=== PATIENT | female | born 1970 | race Caucasian/White ===

== ENCOUNTER 2019-08-02 15:29 | Emergency (ER) | payer OTHER, SELFPAY ==
--- NOTE | 2019-08-02 15:35 | ED.URI ---
HPI - URI/Sore Throat General Chief Complaint: Upper Respiratory Infection Stated Complaint: COUGH/CONGESTION Time Seen by Provider: 08/02/19 15:42 Source: patient and RN notes reviewed Mode of arrival: ambulatory Limitations: no limitations History of Present Illness MD elicited complaint: cough Related Data Home Medications Medication Instructions Recorded Confirmed Lacto.acidophilus-Bif.animalis 1 cap PO DAILY 04/30/19 04/30/19 [Daily Probiotic] bupropion HCl 300 mg PO DAILY 04/30/19 04/30/19 buspirone See Rx Instructions .ROUTE .COMPLEX 04/30/19 04/30/19 cetirizine [Zyrtec] 10 mg PO DAILY 04/30/19 04/30/19 ibuprofen 200 mg PO Q6H PRN 04/30/19 04/30/19 spironolactone 100 mg PO DAILY 04/30/19 04/30/19 tolterodine 4 mg PO DAILY 04/30/19 04/30/19 Allergies Allergy/AdvReac Type Severity Reaction Status Date / Time No Known Allergies Allergy Verified 07/24/19 09:35 Review of Systems Review of Systems: Narrative: CONSTITUTIONAL: Denies malaise, chills, sweats, or fever. EYES: Denies visual changes, redness, or discharge. ENT: Denies rhinorrhea, congestion, sinus pain, otalgia and sore throat. CARDIOVASCULAR: Denies chest pain, palpitations, or edema. RESPIRATORY: Reports cough, chest congestion. Denies dyspnea. GASTROINTESTINAL: Denies abdominal pain, nausea, vomiting, diarrhea SKIN: Denies rash or itching. MUSCULOSKELETAL: Denies myalgia. NEUROLOGIC: Denies headache. All systems reviewed & are unremarkable except as noted in HPI and below PMFSH Family History Family History (System 07/24/19 @ 09:35 by Shima Varela) Mother Family history of hypercholesterolemia Father Family history of cardiac disorder Social History Social History (System 07/24/19 @ 09:35 by Shima Varela) Smoking status: Never smoker Alcohol intake: never Comments At time of signature, agree with nursing past medical, surgical, social and family history. There is no relevant family history pertinent to the presenting complaint Exam Narrative: Exam Narrative: GENERAL: Well-appearing, well-nourished, and in no acute distress. HEAD: Normocephalic EYES: PERRLA, conjunctivae clear ENT: Nares clear, turbinates erythematous, clear discharge. Mucous membranes moist. TM pearly sheppard with dull light reflex bilaterally; no tragal tenderness. Oropharynx not erythematous without lesions. Tonsils not enlarged and without exudate, no drooling, no hoarseness, no trismus. NECK: Supple. No lymphadenopathy CHEST: Clear to auscultation, breath sounds equal. No wheezing, rhonchi, rales, or stridor. No respiratory distress, speaks in full sentences. Cough noted HEART: Regular rate and rhythm. No murmur heard. Normal peripheral pulses. SKIN: Warm, dry, no rash. NEURO: Alert and oriented x3. PSYCH: Normal mood and affect Course Course Emergency Course: Patient is aware of diagnosis, understands and agrees to treatment plan. Anticipatory guidance given. Patient agrees to follow-up as directed and is aware of reasons to seek care at the emergency department. Portions of this record may have been created with voice recognition software Vital Signs Vital signs: Vital Signs Temperature 98.9 F 08/02/19 15:36 Pulse Rate 91 08/02/19 15:36 Respiratory Rate 16 08/02/19 15:36 Blood Pressure 116/66 08/02/19 15:36 Pulse Oximetry 100 08/02/19 15:36 Temperature 98.9 F 08/02/19 15:36 Pulse Rate 91 08/02/19 15:36 Respiratory Rate 16 08/02/19 15:36 Blood Pressure 116/66 08/02/19 15:36 Pulse Oximetry 100 08/02/19 15:36 Reviewed. MDM - URI/Sore Throat MDM Narrative Medical decision making narrative: Differential diagnosis considered: Strep pharyngitis, allergic rhinitis, upper respiratory tract infection, sinusitis, rhinosinusitis, nasopharyngitis. viral pharyngitis, otitis media, otitis externa, pneumonia, bronchitis, viral cough syndrome, viral syndrome, and influenza. Exam findings show no acute concerns or
[2019-08-02 15:36] VITALS: BP 116/66; PULSE 91; RESP 16; TEMP 37.2; O2SAT 100
== END 2019-08-02 15:59 | disposition home or self-care (01) ==
PROVIDERS: Emergency Provider Nurse Practitioner; PCP Family Medicine
DX: J40 Bronchitis, not specified as acute or chronic (principal); F41.9 Anxiety disorder, unspecified; F32.9 Major depressive disorder, single episode, unspecified
CPT/HCPCS: 99213; G0463

== ENCOUNTER 2021-03-28 10:11 | Emergency (ER) | payer OTHER, SELFPAY ==
--- NOTE | 2021-03-28 10:20 | ED.URI ---
HPI - URI/Sore Throat General Chief Complaint: Upper Respiratory Infection Stated Complaint: Sore Throat,Headache Time Seen by Provider: 03/28/21 10:23 Source: patient Mode of arrival: ambulatory Limitations: no limitations History of Present Illness HPI Narrative: 50 year old female who presents to the [facility] care with complaints of sore throat, cough, nasal congestion with drainage, headache since Wednesday. Patient has taken Mucinex and Zyrtec D for her symptoms but is not feeling any better. Patient denies any known fevers but has has some chills and sweats.Patient reports that cough is dry but at times is productive,is keeping her awake at night. Patient has had COVID and also has had COVID immunizations, she works in the school as speech pathologist. MD elicited complaint: sore throat Pertinent past history: sinusitis and other (bronchitis) Onset (ago): day(s) (5) Related Data Home Medications Medication Instructions Recorded Confirmed Lacto.acidophilus-Bif.animalis 1 cap PO DAILY 04/30/19 08/11/19 [Daily Probiotic] bupropion HCl 300 mg PO DAILY 04/30/19 08/11/19 buspirone See Rx Instructions .ROUTE .COMPLEX 04/30/19 08/11/19 cetirizine [Zyrtec] 10 mg PO DAILY 04/30/19 08/11/19 ibuprofen 200 mg PO Q6H PRN 04/30/19 08/11/19 spironolactone 100 mg PO DAILY 04/30/19 08/11/19 Allergies Allergy/AdvReac Type Severity Reaction Status Date / Time No Known Allergies Allergy Verified 07/24/19 09:35 Review of Systems Review of Systems: CONSTITUTIONAL: no known fever,positive for chills, or sweats. EYES: Denies visual changes, redness, or discharge. ENT: Positive for rhinorrhea, congestion, sore throat, no otalgia. CARDIOVASCULAR: Denies chest pain, palpitations, or edema. RESPIRATORY: Positive for cough denies dyspnea. GASTROINTESTINAL: Denies abdominal pain, nausea, vomiting, or diarrhea. GENITOURINARY: Denies dysuria or hematuria. SKIN: Denies rash or itching. MUSCULOSKELETAL: Denies back pain, joint pain, or myalgia. NEUROLOGIC: Positive for headache, numbness, or weakness. PSYCHIATRIC: Positive for history of anxiety or depression. All systems reviewed & are unremarkable except as noted in HPI and below PMFSH Past Medical History Medical History (Updated 03/28/21 @ 10:40 by Ruby Walker NP) Coated tongue COVID-19 Exposure to COVID-19 virus Overactive bladder Stomatitis Viral bronchitis Surgical History Surgical History (Updated 03/28/21 @ 18:57 by Ruby Walker NP) H/O spinal fusion Family History Family History Mother Family history of hypercholesterolemia Father Family history of cardiac disorder Social History Social History (Updated 03/28/21 @ 18:57 by Ruby Walker NP) Smoking status: Never smoker Alcohol intake: never Substance use: never Living arrangements: with family Gender identity (if verbalized by the patient): Female Comments At time of signature, agree with nursing past medical, surgical, social and family history. There is no relevant family history pertinent to the presenting complaint Exam Narrative: GENERAL: Well-appearing, well-nourished, and in no acute distress. HEAD: Normocephalic, atraumatic. EYES: PERRLA and EOMI. ENT: Nares red, clear rhinorrhea no epistaxis. Mucous membranes moist.TM's normal with dull light reflex, throat red with no lesions or exudates,some enlargement of tonsils, post nasal drainage NECK: Supple.no lymphadenopathy CHEST: Clear to auscultation. No respiratory distress.SAO2 100% on room air HEART: Regular rate and rhythm. No murmur heard. Normal peripheral pulses. ABDOMEN: Soft, nontender, nondistended, normal active bowel sounds. EXTREMITIES: Normal range of motion. No edema. SKIN: Warm, dry, no rash. NEURO: No focal deficits. Alert and oriented x3. Course Vital Signs Vital signs: Vital Signs Temperature 37.1 C 03/28/21 10:22 Pulse Rate 93 03/28/21 10:22 R
[2021-03-28 10:22] VITALS: BP 128/66; PULSE 93; RESP 16; TEMP 37.1; O2SAT 100
== END 2021-03-28 10:43 | disposition home or self-care (01) ==
PROVIDERS: Emergency Provider Registered Nurse; PCP Family Medicine
DX: J32.9 Chronic sinusitis, unspecified (principal); R05.9 Cough, unspecified; Z86.16 Personal history of COVID-19
CPT/HCPCS: 99213; G0463

== ENCOUNTER 2021-08-14 16:06 | Emergency (ER) | payer OTHER, SELFPAY ==
[2021-08-14 16:12] VITALS: BP 129/72; PULSE 90; RESP 12; TEMP 37.1; O2SAT 100
--- NOTE | 2021-08-14 16:17 | ED.SKABFB ---
HPI - Skin/Abscess/Foreign Bdy General Chief complaint: Skin/Abscess/Foreign Body Stated complaint: swollen area Time Seen by Provider: 08/14/21 16:17 Source: patient and RN notes reviewed Mode of arrival: ambulatory Limitations: no limitations History of Present Illness HPI narrative: 51 year old female presents with concern for painful bumps in her right groin area. She reports she had what she though was a fatty tumor for some time, and over the past five days has become irritated, larger, and more painful. She reports a small amount of drainage. She denies fever, body aches, chills, sweats, or other painful tender bumps. She denies SOB, swollen lips, or swollen tongue. She denies concern for STD, vaginal itching, or abnormal vaginal discharge. MD complaint: abscess/boil Related Data Home Medications Medication Instructions Recorded Confirmed Lacto.acidophilus-Bif.animalis 1 cap PO DAILY 04/30/19 08/14/21 [Daily Probiotic] bupropion HCl 300 mg PO DAILY 04/30/19 08/14/21 buspirone See Rx Instructions .ROUTE .COMPLEX 04/30/19 08/14/21 cetirizine [Zyrtec] 10 mg PO DAILY 04/30/19 08/14/21 ibuprofen 200 mg PO Q6H PRN 04/30/19 08/14/21 spironolactone 100 mg PO DAILY 04/30/19 08/14/21 ascorbate calcium (vitamin C) 1,000 mg PO DAILY 08/14/21 08/14/21 cholecalciferol (vitamin D3) 50 mcg PO DAILY 08/14/21 08/14/21 [Vitamin D3] Allergies Allergy/AdvReac Type Severity Reaction Status Date / Time No Known Allergies Allergy Verified 08/14/21 16:12 Review of Systems Review of Systems: CONSTITUTIONAL: Denies malaise, chills, sweats, or fever. ENT: Denies rswollen lips, swollen tongue CARDIOVASCULAR: Denies chest pain, palpitations, or edema. RESPIRATORY: Denies cough or dyspnea. GASTROINTESTINAL: Denies abdominal pain, nausea, vomiting SKIN: Reports swollen, painful bumps to the right groin. MUSCULOSKELETAL: Denies joint pain or myalgia. NEUROLOGIC: Denies headache. All systems reviewed & are unremarkable except as noted in HPI and below PMFSH Past Medical History Medical History (Updated 08/14/21 @ 17:03 by Talia Oviedo NP) Coated tongue COVID-19 (05/06/20) Exposure to COVID-19 virus Overactive bladder Stomatitis Viral bronchitis Surgical History Surgical History (Updated 03/28/21 @ 18:57 by Ruby Walker NP) H/O spinal fusion Family History Family History Mother Family history of hypercholesterolemia Father Family history of cardiac disorder Social History Social History (Updated 03/28/21 @ 18:57 by Ruby Walker NP) Smoking status: Never smoker Alcohol intake: never Substance use: never Gender identity (if verbalized by the patient): Female Comments At time of signature, agree with nursing past medical, surgical, social and family history. There is no relevant family history pertinent to the presenting complaint Exam Narrative: GENERAL: Well-appearing, well-nourished, and in no acute distress. HEAD: Normocephalic, atraumatic. EYES: PERRLA, sclera clear ENT: Mucous membranes moist. NECK: Supple. No lymphadenopathy CHEST: Clear to auscultation. No respiratory distress. HEART: Regular rate and rhythm. SKIN: Warm, dry. 2 fluctuant confluent abscesses noted. firmer palpable nodule under the fluctuant masses NEURO: Alert and oriented x3. PSYCH: Normal mood and affect : Female genitals images: 1. fluctuant tender abscess with small yellow drainage confluent with smaller abscess below. 2. Fluctuant tender abscess with small yellow drainage confluent with smaller abscess above. Course Course Emergency Course: Patient is aware of diagnosis, understands and agrees to treatment plan. Anticipatory guidance given. Patient agrees to follow-up as directed and is aware of reasons to seek care at the emergency department. Portions of this record may have been created with voice recognition software Level of Care: [facility]
== END 2021-08-14 17:09 | disposition home or self-care (01) ==
PROVIDERS: Emergency Provider Nurse Practitioner; PCP Family Medicine
DX: L02.214 Cutaneous abscess of groin (principal); Z86.16 Personal history of COVID-19
CPT/HCPCS: 10060; 87070; 87205; 99213; G0463

== ENCOUNTER 2021-10-20 15:54 | Emergency (ER) | payer OTHER, SELFPAY ==
[2021-10-20 16:01] VITALS: BP 131/71; PULSE 86; RESP 16; TEMP 36.8; O2SAT 100
--- NOTE | 2021-10-20 16:04 | ED.URI ---
HPI - URI/Sore Throat General Chief Complaint: Upper Respiratory Infection Stated Complaint: headache, sore throat, ear pain Time Seen by Provider: 10/20/21 16:11 Source: patient and RN notes reviewed Mode of arrival: ambulatory Limitations: no limitations History of Present Illness HPI Narrative: 51-year-old female presents with concern for 3-day history of hoarse voice, sore throat, swollen glands, nonproductive cough, ear pain. She reports she is taking Zyrtec. She denies any other [id number] intervention. She denies body aches, chills, fever, sweats. Reports she usually gets laryngitis and/or bronchitis twice a year. MD elicited complaint: cough and sore throat Related Data Home Medications Medication Instructions Recorded Confirmed Lacto.acidophilus-Bif.animalis 1 cap PO DAILY 04/30/19 10/20/21 [Daily Probiotic] bupropion HCl 300 mg PO DAILY 04/30/19 10/20/21 buspirone See Rx Instructions .ROUTE .COMPLEX 04/30/19 10/20/21 cetirizine [Zyrtec] 10 mg PO DAILY 04/30/19 10/20/21 ibuprofen 200 mg PO Q6H PRN 04/30/19 10/20/21 spironolactone 100 mg PO DAILY 04/30/19 10/20/21 ascorbate calcium (vitamin C) 1,000 mg PO DAILY 08/14/21 10/20/21 cholecalciferol (vitamin D3) 50 mcg PO DAILY 08/14/21 10/20/21 [Vitamin D3] Allergies Allergy/AdvReac Type Severity Reaction Status Date / Time No Known Allergies Allergy Verified 10/20/21 16:09 Review of Systems Review of Systems: CONSTITUTIONAL: Denies malaise, chills, sweats, or fever. EYES: Denies visual changes, redness, or discharge. ENT: Reports rhinorrhea, congestion, otalgia, hoarse voice and sore throat. CARDIOVASCULAR: Denies chest pain, palpitations, or edema. RESPIRATORY: Reports cough. Denies dyspnea. GASTROINTESTINAL: Denies abdominal pain, nausea, vomiting, diarrhea SKIN: Denies rash or itching. MUSCULOSKELETAL: Denies myalgia. NEUROLOGIC: Denies headache. All systems reviewed & are unremarkable except as noted in HPI and below PMFSH Past Medical History Medical History (Updated 10/20/21 @ 16:20 by Talia Oviedo NP) Coated tongue COVID-19 (05/06/20) Exposure to COVID-19 virus Overactive bladder Stomatitis Viral bronchitis Surgical History Surgical History (Updated 03/28/21 @ 18:57 by Ruby Walker NP) H/O spinal fusion Family History Family History Mother Family history of hypercholesterolemia Father Family history of cardiac disorder Social History Social History (Updated 03/28/21 @ 18:57 by Ruby Walker NP) Smoking status: Never smoker Alcohol intake: never Substance use: never Gender identity (if verbalized by the patient): Female Comments At time of signature, agree with nursing past medical, surgical, social and family history. There is no relevant family history pertinent to the presenting complaint Exam Narrative: GENERAL: Well-appearing, well-nourished, and in no acute distress. HEAD: Normocephalic EYES: PERRLA, conjunctivae clear ENT: Nares clear, clear discharge. Mucous membranes moist. TM pearly sheppard with sharp light reflex bilaterally; no tragal tenderness. Oropharynx not erythematous without lesions. Tonsils not enlarged and without exudate, no drooling, no hoarseness, no trismus, uvula midline. NECK: Supple. No lymphadenopathy CHEST: Clear to auscultation, breath sounds equal. No wheezing, rhonchi, rales, or stridor. No respiratory distress, speaks in full sentences. HEART: Regular rate and rhythm. No murmur heard. SKIN: Warm, dry, no rash. NEURO: Alert and oriented x3. PSYCH: Normal mood and affect Course Course Emergency Course: Patient is aware of diagnosis, understands and agrees to treatment plan. Anticipatory guidance given. Patient agrees to follow-up as directed and is aware of reasons to seek care at the emergency department. Portions of this record may have been created with voice recognition software Level of Care: Express
== END 2021-10-20 16:23 | disposition home or self-care (01) ==
PROVIDERS: Emergency Provider Nurse Practitioner; PCP Family Medicine
DX: J06.9 Acute upper respiratory infection, unspecified (principal); Z79.1 Long term (current) use of non-steroidal anti-inflammatories (NSAID)
CPT/HCPCS: 99213; G0463

== ENCOUNTER 2021-10-27 16:08 | Emergency (ER) | payer OTHER, SELFPAY ==
[2021-10-27 16:19] VITALS: BP 126/81; PULSE 86; RESP 16; TEMP 36.3; O2SAT 99
--- NOTE | 2021-10-27 16:52 | ED.EYEPROB ---
HPI - Eye Problem General Chief complaint: Eye Problems Stated complaint: Eye pain Time Seen by Provider: 10/27/21 16:42 Source: patient, RN notes reviewed and old records reviewed Mode of arrival: ambulatory Limitations: no limitations History of Present Illness HPI Narrative: 51 year old female who [facility] with complaints of right eye redness, swelling, visual blurring and photophobia which started yesterday, Patient reports that she has been using some OTC eye drops artificial tears to her right eye with no decrease in discomfort or resolution of her symptoms. Patient reports that she feels like there is something in her right eye but is unaware of anything going into her right eye, denies any drainage or matting from her right eye. Patient states increase watering from right eye and also photophobia. MD chief complaint: eye pain, eye redness, vision change (blurry) and other (watering) Onset (ago): day(s) (1) Onset description: gradual Duration: progressively worsening Location: right eye Eye Symptoms: redness, pain, blurry vision and photophobia Place: home Mechanism: none Severity: moderate Severity scale (1-10): 3 If Pain, Quality: aching Associated symptoms: none Treatments Prior to Arrival: OTC eye drops Related Data Home Medications Medication Instructions Recorded Confirmed bupropion HCl 300 mg PO DAILY 04/30/19 10/27/21 buspirone See Rx Instructions .ROUTE .COMPLEX 04/30/19 10/27/21 cetirizine [Zyrtec] 10 mg PO DAILY 04/30/19 10/27/21 ibuprofen 200 mg PO Q6H PRN 04/30/19 10/27/21 spironolactone 100 mg PO DAILY 04/30/19 10/27/21 ascorbate calcium (vitamin C) 1,000 mg PO DAILY 08/14/21 10/27/21 cholecalciferol (vitamin D3) 50 mcg PO DAILY 08/14/21 10/27/21 [Vitamin D3] Allergies Allergy/AdvReac Type Severity Reaction Status Date / Time No Known Allergies Allergy Verified 10/20/21 16:09 Review of Systems Review of Systems: CONSTITUTIONAL: Denies fever, chills, or sweats. EYES: Positive for visual changes, redness, no discharge., right eye blurry with photophobia ENT: Denies rhinorrhea, congestion, sore throat, or otalgia. CARDIOVASCULAR: Denies chest pain, palpitations, or edema. RESPIRATORY: Denies cough or dyspnea. GASTROINTESTINAL: Denies abdominal pain, nausea, vomiting, or diarrhea. GENITOURINARY: Denies dysuria or hematuria. SKIN: Denies rash or itching. MUSCULOSKELETAL: Denies back pain, joint pain, or myalgia. NEUROLOGIC: Denies headache, numbness, or weakness. PSYCHIATRIC: Positive for history of anxiety or depression. All systems reviewed & are unremarkable except as noted in HPI and below PMFSH Past Medical History Medical History (Updated 10/27/21 @ 17:31 by Ruby Walker NP) Anxiety and depression Coated tongue COVID-19 (05/06/20) Exposure to COVID-19 virus Overactive bladder Stomatitis Viral bronchitis Surgical History Surgical History H/O spinal fusion Family History Family History Mother Family history of hypercholesterolemia Father Family history of cardiac disorder Social History Social History Smoking status: Never smoker Alcohol intake: never Substance use: never Gender identity (if verbalized by the patient): Female Comments At time of signature, agree with nursing past medical, surgical, social and family history. There is no relevant family history pertinent to the presenting complaint Exam Narrative: GENERAL: Well-appearing, well-nourished, and in no acute distress. HEAD: Normocephalic, atraumatic. EYES: PERRLA and EOMI.some redness to sclera of right eye and some swelling, excessive watering of right eye, small raised blister type of lesion noted to lower mid eye lid. Patient reports some visual blurring and states feels like something in her right eye, see procedure
== END 2021-10-27 17:18 | disposition home or self-care (01) ==
PROVIDERS: Emergency Provider Registered Nurse; PCP Family Medicine
DX: S05.01XA Injury of conjunctiva and corneal abrasion without foreign body, right eye, initial encounter (principal); X58.XXXA Exposure to other specified factors, initial encounter; H00.012 Hordeolum externum right lower eyelid; F41.9 Anxiety disorder, unspecified; F32.A Depression, unspecified; Z86.16 Personal history of COVID-19
CPT/HCPCS: 99213; A9270; G0463

== ENCOUNTER 2022-04-05 12:48 | Emergency (ER) | payer OTHER, SELFPAY ==
--- NOTE | 2022-04-05 12:55 | ED.URI ---
HPI - URI/Sore Throat General Chief Complaint: Upper Respiratory Infection Stated Complaint: SORE THROAT/DRAINAGE/HEADACHE/EARACHE/SINUS Time Seen by Provider: 04/05/22 13:06 Source: patient and RN notes reviewed Mode of arrival: ambulatory Limitations: no limitations History of Present Illness HPI Narrative: 51-year-old female presents to the [facility] with complaints of sore throat, nasal drainage, headache, earaches and sinus pressure. Symptoms only started yesterday. No treatment prior to arrival. Denies fevers. Denies chest pain. No abdominal pain. Reports that she was at the [employer] [place] on Wednesday, started having increased congestion yesterday. Woke up this morning with increased congestion and a runny nose. States that she does take Zyrtec daily. Onset (ago): day(s) (1) Related Data Home Medications Medication Instructions Recorded Confirmed bupropion HCl 300 mg 24 hr tablet, 300 mg PO DAILY 04/30/19 04/05/22 extended release buspirone 15 mg tablet See Rx Instructions .Route .COMPLEX 04/30/19 04/05/22 cetirizine 10 mg tablet (Zyrtec) 10 mg PO DAILY 04/30/19 04/05/22 ibuprofen 200 mg capsule 200 mg PO Q6H PRN Pain 04/30/19 04/05/22 spironolactone 100 mg tablet 100 mg PO DAILY 04/30/19 04/05/22 ascorbate calcium (vitamin C) 500 1,000 mg PO DAILY 08/14/21 04/05/22 mg tablet cholecalciferol (vitamin D3) 50 50 mcg PO DAILY 08/14/21 04/05/22 mcg (2,000 unit) capsule (Vitamin D3) Allergies Allergy/AdvReac Type Severity Reaction Status Date / Time No Known Allergies Allergy Verified 04/05/22 13:00 Review of Systems Review of Systems: All systems reviewed & are unremarkable except as noted in HPI and below Constitutional: Constitutional: Reports no additional constitutional complaints, Denies chills and Denies fever(s) Eyes: Eyes: Reports no additional eye complaints ENT: Reports as per HPI and Reports nasal congestion Cardiovascular: Cardiovascular: Reports no additional cardiovascular complaints Respiratory: Respiratory: Reports no additional respiratory complaints Gastrointestinal: Gastrointestinal: Reports no additional gastrointestinal complaints Musculoskeletal: Musculoskeletal: Reports no additional musculoskeletal complaints Integumentary/Breasts: Skin/Breast: Reports system reviewed and no additional complaints, except as docu Neurologic: Reports system reviewed and no additional complaints, except as documented Psychiatric: Psychiatric: Reports no additional psychiatric complaints Allergic/Immunologic: Allergic/Immunologic: Reports no additional allergic/immunologic complaints PMFSH Past Medical History Medical History (Updated 04/05/22 @ 16:23 by Talia Poe APRN) Anxiety and depression Coated tongue COVID-19 (05/06/20) Exposure to COVID-19 virus Overactive bladder Stomatitis Viral bronchitis Surgical History Surgical History H/O spinal fusion Family History Family History Mother Family history of hypercholesterolemia Father Family history of cardiac disorder Social History Social History Smoking status: Never smoker Alcohol intake: never Substance use: never Gender identity (if verbalized by the patient): Female Comments At the time of my signature, I reviewed and agree with the nursing past medical, surgical, social, and family history. There is no relevant family history pertinent to the patient complaint. Exam Const: General: healthy appearing, no acute distress, alert and well nourished Nutritional Appearance: well nourished Orientation/consciousness: patient oriented x3 Limitations: no limitations HENMT: Head: normal to inspection Ears: external ears normal, EAC's normal and TM abnormal wth effusion serous bilateral Face/Nose/Sinus: Normal external nose presen
[2022-04-05 13:01] VITALS: BP 116/80; PULSE 83; RESP 16; TEMP 37.7; O2SAT 100
== END 2022-04-05 13:30 | disposition home or self-care (01) ==
PROVIDERS: Emergency Provider Nurse Practitioner; PCP Family Medicine Sports Medicine
DX: H65.03 Acute serous otitis media, bilateral (principal); R09.82 Postnasal drip; F41.9 Anxiety disorder, unspecified; Z86.16 Personal history of COVID-19
CPT/HCPCS: 99213; G0463

== ENCOUNTER 2023-02-16 18:27 | Emergency (ER) | payer OTHER, SELFPAY ==
--- NOTE | 2023-02-16 18:37 | ED.URI ---
HPI - URI/Sore Throat General Chief Complaint: Upper Respiratory Infection Stated Complaint: Sore Throat Source: patient and RN notes reviewed History of Present Illness HPI Narrative: 52 yo F presents to urgent care with complaints of a sore throat and slight HANNA x 3 days. Pt reports feeling a little cottony in her chest. Pt denies any fevers, chills, chest pain, vomiting, diarrhea, ear pain, or other complaints. Related Data Home Medications Medication Instructions Recorded Confirmed bupropion HCl 300 mg 24 hr tablet, 300 mg PO DAILY 04/30/19 02/16/23 extended release cetirizine 10 mg tablet (Zyrtec) 10 mg PO DAILY 04/30/19 02/16/23 spironolactone 100 mg tablet 100 mg PO DAILY 04/30/19 02/16/23 ascorbate calcium (vitamin C) 500 1,000 mg PO DAILY 08/14/21 02/16/23 mg tablet cholecalciferol (vitamin D3) 50 50 mcg PO DAILY 08/14/21 02/16/23 mcg (2,000 unit) capsule (Vitamin D3) Allergies Allergy/AdvReac Type Severity Reaction Status Date / Time No Known Allergies Allergy Verified 02/16/23 18:39 Review of Systems Review of Systems: Pertinent positives and pertinent negatives per HPI. [facility] Past Medical History Medical History (Updated 02/16/23 @ 18:55 by Tamiko Melgoza APRN) Anxiety and depression Coated tongue COVID-19 (05/06/20) Exposure to COVID-19 virus Overactive bladder Stomatitis Viral bronchitis Surgical History Surgical History H/O spinal fusion Family History Family History Mother Family history of hypercholesterolemia Father Family history of cardiac disorder Social History Social History Smoking status: Never smoker Alcohol intake: never Substance use: never Living arrangements: with family Gender identity (if verbalized by the patient): Female Comments At the time of my signature, I reviewed and agree with the nursing past medical, surgical, social, and family history. There is no relevant family history pertinent to the patient complaint. Exam Narrative: GENERAL: This is a well-nourished, well-developed patient, in no apparent distress. HEAD: normocephalic, atraumatic. EYES: Sclera clear/white. Vision is grossly intact. EARS: External ears normal, auditory canals clear and without drainage, TMs normal without perforation. Hearing grossly intact. NOSE: External nose normal with no obvious nasal discharge, nares without redness, no rhinorrhea. THROAT: Mucous membranes moist, posterior pharynx erythemic with minimal white exudates. NECK: Neck supple, non-tender without lymphadenopathy, masses or thyromegaly. CARDIOVASCULAR: Regular rate and rhythm without murmurs, gallops, or rubs. RESPIRATORY: Clear to auscultation. Breath sounds equal bilaterally. No wheezes, rales, or rhonchi. GASTROINTESTINAL: Abdomen soft, non-tender, nondistended. Bowel sounds are active. No hepato-splenomegaly, or palpable masses. No guarding. SKIN: warm, intact with no suspicious lesions or rash, good texture and turgor. NEURO: awake, alert, and oriented to person, place and time. There were no obvious focal neurologic abnormalities. Course Course Level of Care: Express Care Visit Vital Signs Vital signs: Vital Signs Temperature 99.2 F 02/16/23 18:43 Pulse Rate 88 02/16/23 18:43 Respiratory Rate 16 02/16/23 18:43 Blood Pressure 127/84 02/16/23 18:43 Pulse Oximetry 100 02/16/23 18:43 Temperature 99.2 F 02/16/23 18:43 Pulse Rate 88 02/16/23 18:43 Respiratory Rate 16 02/16/23 18:43 Blood Pressure 127/84 02/16/23 18:43 Pulse Oximetry 100 02/16/23 18:43 reviewed MDM - URI/Sore Throat MDM Narrative Medical decision making narrative: Rapid strep is negative in the office; however we will send to the lab for confirmation; there is a small percentage chance that it
[2023-02-16 18:43] VITALS: BP 127/84; PULSE 88; RESP 16; TEMP 37.3; O2SAT 100
== END 2023-02-16 18:57 | disposition home or self-care (01) ==
PROVIDERS: Emergency Provider Nurse Practitioner Family
DX: J02.9 Acute pharyngitis, unspecified (principal); F41.9 Anxiety disorder, unspecified
CPT/HCPCS: 87081; 87880; 99213; G0463

== ENCOUNTER 2023-03-02 16:22 | Emergency (ER) | payer OTHER, SELFPAY ==
--- NOTE | 2023-03-02 16:27 | ED.SKABFB ---
HPI - Skin/Abscess/Foreign Bdy General Chief complaint: Skin/Abscess/Foreign Body Stated complaint: RASH Time Seen by Provider: 03/02/23 16:27 Source: patient Mode of arrival: ambulatory Limitations: no limitations History of Present Illness HPI narrative: Samanta is a 52-year-old female patient presenting to the clinic today with complaints of a itchy red raised rash to her left upper arm that is now spreading to her lower arm since Wednesday. She reports no known fever or chills. No environmental changes known. Denies pain Related Data Home Medications Medication Instructions Recorded Confirmed bupropion HCl 300 mg 24 hr tablet, 300 mg PO DAILY 04/30/19 03/02/23 extended release cetirizine 10 mg tablet (Zyrtec) 10 mg PO DAILY 04/30/19 03/02/23 spironolactone 100 mg tablet 100 mg PO DAILY 04/30/19 03/02/23 ascorbate calcium (vitamin C) 500 1,000 mg PO DAILY 08/14/21 03/02/23 mg tablet cholecalciferol (vitamin D3) 50 50 mcg PO DAILY 08/14/21 03/02/23 mcg (2,000 unit) capsule (Vitamin D3) Allergies Allergy/AdvReac Type Severity Reaction Status Date / Time No Known Allergies Allergy Verified 03/02/23 16:33 Review of Systems Review of Systems: Pertinent positives per HPI. Patient denies any fever, chills, headache, visual changes, dizziness, cough, runny nose, sore throat, shortness of breath, chest pain, palpitations, nausea, vomiting, diarrhea, constipation, abdominal pain, or any urinary issues. [facility] Past Medical History Medical History Anxiety and depression Coated tongue COVID-19 (05/06/20) Exposure to COVID-19 virus Overactive bladder Stomatitis Viral bronchitis Surgical History Surgical History H/O spinal fusion Family History Family History Mother Family history of hypercholesterolemia Father Family history of cardiac disorder Social History Social History Smoking status: Never smoker Alcohol intake: never Substance use: never Living arrangements: with family Gender identity (if verbalized by the patient): Female Comments At the time of my signature, I reviewed and agree with the nursing past medical, surgical, social, and family history. There is no relevant family history pertinent to the patient complaint. Exam Narrative: General: Well-developed, well nourished, in no apparent distress Head: Normocephalic, atraumatic. Cardio: Regular rate and rhythm, s1 and s2 normal, no murmur appreciated. Resp: Clear to auscultation bilaterally, no rhonchi, rales, wheezing or rubs. Integumentary: Antlers, warm, and dry, intact without lesion, red, raised, bumpy rash to the right distal upper arm and to the proximal forearm-rash is itchy and nonpainful, rash is blanchable Course Course Emergency Course: Portions of this record may have been created with voice recognition software. Level of Care: Express Care Visit Vital Signs Vital signs: Vital signs reviewed MDM - Skin/Abscess/Foreign Bdy MDM Narrative Medical decision making narrative: At the time of visit patient is resting comfortably on exam table. I suspect patient has dermatitis to her right upper arm. Will send in prescription for some triamcinolone cream. Supportive measures were discussed with the patient she voiced understanding discharge instructions and agrees to treatment plan Differential Diagnosis Differential diagnosis: Likely abscess of skin or subcutaneous tissue, urticaria, herpes zoster, cellulitis, eczema, insect bites, impetigo and contact dermatitis Discharge Plan Discharge Clinical Impression: Dermatitis Patient Disposition: Home, Self-Care Condition: Stable Instructions: Antibiotic Form, Dermatitis (ED) Additional Instructions: Apply
[2023-03-02 16:31] VITALS: BP 113/80; PULSE 84; RESP 16; TEMP 37; O2SAT 98
== END 2023-03-02 16:36 | disposition home or self-care (01) ==
PROVIDERS: Emergency Provider Nurse Practitioner Family; PCP Family Medicine Sports Medicine
DX: L30.9 Dermatitis, unspecified (principal); F41.9 Anxiety disorder, unspecified; F32.A Depression, unspecified; Z86.16 Personal history of COVID-19
CPT/HCPCS: 99213; G0463

== ENCOUNTER 2024-07-06 16:20 | Emergency (ER) | payer OTHER, SELFPAY ==
[2024-07-06 16:37] VITALS: BP 131/84; PULSE 82; RESP 16; TEMP 36.9; O2SAT 100
[2024-07-06 16:49] LABS: EDCOVIDSCREEN Negative (Negative); EDINFLUASCREEN Negative (Negative); EDINFLUBSCREEN Negative (Negative); EDSTREPNEGPOS1 Negative (Negative)
--- NOTE | 2024-07-06 16:51 | ED_ITS ---
HPI - URI/Sore Throat General Chief Complaint: Upper Respiratory Infection Stated Complaint: Sinus Infection Symptoms Time Seen by Provider: 07/06/24 16:39 Source: patient and RN notes reviewed Mode of arrival: ambulatory Limitations: no limitations History of Present Illness HPI Narrative: Patient presents a 3-4 day history of sore throat, cough, headache, ear pressure, pain in the teeth. Denies fever, shortness of breath. She takes Zyrtec D and Tylenol with mild relief. 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 Related Data Home Medications ?Medication ?Instructions ?Recorded ?Confirmed ?Last Taken ?Type bupropion HCl 300 mg 24 hr tablet, 300 mg PO DAILY 04/30/19 07/06/24 Unknown History extended release cetirizine 10 mg tablet (Zyrtec) 10 mg PO DAILY 04/30/19 07/06/24 Unknown History spironolactone 100 mg tablet 100 mg PO DAILY 04/30/19 07/06/24 Unknown History ascorbate calcium (vitamin C) 500 1,000 mg PO DAILY 08/14/21 07/06/24 Unknown History mg tablet cholecalciferol (vitamin D3) 50 50 mcg PO DAILY 08/14/21 07/06/24 Unknown History mcg (2,000 unit) capsule (Vitamin D3) biotin 07/06/24 Unknown History Allergies Allergy/AdvReac Type Severity Reaction Status Date / Time No Known Allergies Allergy Verified 07/06/24 16:33 Review of Systems Review of Systems: CONSTITUTIONAL: Denies body aches, fever, chills, or sweats. EYES: Denies visual changes, redness, or discharge. ENT: Denies rhinorrhea, or otalgia.+ congestion, sore throat, ear pressure CARDIOVASCULAR: Denies chest pain, palpitations, or edema. RESPIRATORY: Denies dyspnea.+ cough GASTROINTESTINAL: Denies abdominal pain, nausea, vomiting, or diarrhea. GENITOURINARY: Denies dysuria or hematuria. SKIN: Denies rash, itching, or wounds. MUSCULOSKELETAL: Denies back pain, joint pain, or myalgia. NEUROLOGIC: Denies numbness, tingling, or weakness.+ headache PSYCH: Denies depression or anxiety. [facility] Past Medical History Medical History Anxiety and depression COVID-19 (05/06/20) Exposure to COVID-19 virus Overactive bladder Stomatitis Coated tongue Viral bronchitis Surgical History Surgical History H/O spinal fusion Family History Family History Mother Family history of hypercholesterolemia Father Family history of cardiac disorder Social History Social History Smoking status: Never smoker Alcohol intake: never Substance use: never Living arrangements: with family Gender identity (if verbalized by the patient): Female Comments At time of signature, I have reviewed and agree with nursing past medical, surgical, social and family history unless otherwise noted. Please see nursing chart for further information. There is no relevant family history pertinent to the presenting complaint Exam Narrative: GENERAL: Mildly ill-appearing, well-nourished, and in no acute distress. HEAD: Normocephalic, atraumatic. EYES: EOMI. No redness or drainage. Conjunctivae normal. ENT: Mucous membranes pink and moist. Nares congested with rhinorrhea. TMs normal bilaterally. Throat normal. Uvula midline. NECK: Normal AROM. Supple. No lymphadenopathy. CHEST: No respiratory distress. Clear to auscultation. HEART: Regular rate and rhythm. No murmur appreciated. EXTREMITIES: Normal range of motion. No edema. SKIN: Warm, dry, no rash. Capillary refill normal. Normal skin turgor. NEURO: No focal deficits. Alert and oriented x3. Gait steady. PSYCH: Normal affect. No signs of depression or anxiety. Course Course Level of Care: Express Care Visit Vital Signs Vital signs: Vital Signs Temperature 98.5 F 07/06/24 16:37 Pulse Rate 82 07/06/24 16:37 Respiratory Rate 16 07/06/24 16:37 Blood Pressure 131/84 07/06/24 16:37 Pulse Oximetry 100 07/06/24 16:37 Temperature 98.5 F 07/06/24 16:37 Pulse Rate 82 07/06/24 16:37 Respiratory Rate 16 07/06/24 16:37 Blood Pressure 131/84 07/06/24 16:37 Pulse Oximetry 100 07/06/24 16:37 Reviewed MDM - URI/Sore Throat MDM Narrative Medical decision making narrative: Testing negative. Strep culture pending. Symptoms likely viral in etiology. Discussed [id number] medication use and duration of illness. No prescription medications indicated at this time. Anticipatory guidance given. Differential Diagnosis Differential diagnosis: Likely upper respiratory infection, sinusitis, viral infection, influenza, pharyngitis and other (Strep throat, COVID) Lab Data Attestation: I reviewed the patient's lab results. Labs: Lab Results 07/06/24 Range/Units 16:48 POC Influenza A Ag Negative (Negative) POC Influenza B Ag Negative (Negative) POC SARS CoV-2 Ag Negative (Negative) POC Grp A Strep Screen Negative (Negative) Critical Care Time Critical Care Time Critical Care Time: No Discharge Plan Discharge Clinical Impression: Upper respiratory infection Qualifiers: URI type: unspecified URI Qualified Code(s): J06.9 - Acute upper respiratory infection, unspecified Patient Disposition: Home, Self-Care Condition: Stable Instructions: Upper Respiratory Infection (DC) Additional Instructions: Your influenza, COVID-19, and rapid strep swab were negative today at [facility]. You will be notified in a few days if the culture comes back positive for strep, and appropriate antibiotics will be called in for you at that time. Your symptoms are likely due to a viral illness, which is not treated with antibiotics. Viral symptoms can be present for up to 7-10 days. Take Tylenol or ibuprofen for fever or pain. Rest and stay hydrated. Follow up with your PCP in 7 days if symptoms are not improving. Go to the ER immediately if you have any difficulty breathing or swallowing. Your blood pressure was elevated above 120/80 today at Urgent Care. This puts you above the threshold for follow up. Please schedule a followup visit with your personal physician as soon as possible, for further evaluation and treatment. Even blood pressure exceeding 120/80 may indicate pre-hypertension. Patient Language: Ivorian Prescriptions: No Action ascorbate calcium (vitamin C) 500 mg Tablet 1,000 mg PO DAILY cholecalciferol (vitamin D3) [Vitamin D3] 50 mcg (2,000 unit) Capsule 50 mcg PO DAILY cetirizine [Zyrtec] 10 mg Tablet 10 mg PO DAILY spironolactone 100 mg tablet 100 mg PO DAILY bupropion HCl 300 mg tablet extended release 24 hr 300 mg PO DAILY triamcinolone acetonide 0.1 % cream 1 applic topical BID 7 Days Qty: 30 0RF biotin tolterodine 4 mg capsule,extended release 24hr 4 mg PO DAILY Qty: 90 3RF Follow-up/Referrals: Barby,Karen May APRN [Primary Care Provider] - Time of Disposition: 16:54
== END 2024-07-06 16:59 | disposition home or self-care (01) ==
PROVIDERS: Emergency Provider Nurse Practitioner; PCP Nurse Practitioner Family
DX: J06.9 Acute upper respiratory infection, unspecified (principal); Z20.822 Contact with and (suspected) exposure to COVID-19; F41.9 Anxiety disorder, unspecified; F32.A Depression, unspecified; Z86.16 Personal history of COVID-19
CPT/HCPCS: 87081; 87426; 87804; 87880; 99213; G0463

== ENCOUNTER 2024-07-19 16:21 | Emergency (ER) | payer OTHER, SELFPAY ==
--- NOTE | 2024-07-19 16:23 | ED.URI ---
HPI - URI/Sore Throat General Chief Complaint: Upper Respiratory Infection Stated Complaint: SORE THROAT/COUGH Time Seen by Provider: 07/19/24 16:23 Source: patient Mode of arrival: ambulatory Limitations: no limitations History of Present Illness HPI Narrative: Patient is a 54-year-old female who presents with sore throat, ear pain and cough. Patient was seen here 2 weeks ago for similar symptoms. Patient was negative for all testing at that time. Symptoms had resolved until 3 days ago. Denies any fever, chills, nausea, vomiting, diarrhea. Related Data Home Medications ?Medication ?Instructions ?Recorded ?Confirmed ?Last Taken ?Type bupropion HCl 300 mg 24 hr tablet, 300 mg PO DAILY 04/30/19 07/06/24 Unknown History extended release cetirizine 10 mg tablet (Zyrtec) 10 mg PO DAILY 04/30/19 07/06/24 Unknown History spironolactone 100 mg tablet 100 mg PO DAILY 04/30/19 07/06/24 Unknown History ascorbate calcium (vitamin C) 500 1,000 mg PO DAILY 08/14/21 07/06/24 Unknown History mg tablet cholecalciferol (vitamin D3) 50 50 mcg PO DAILY 08/14/21 07/06/24 Unknown History mcg (2,000 unit) capsule (Vitamin D3) biotin 07/06/24 Unknown History Allergies Allergy/AdvReac Type Severity Reaction Status Date / Time No Known Allergies Allergy Verified 07/19/24 16:32 Review of Systems Review of Systems: All systems reviewed & are unremarkable except as noted in HPI and below Constitutional: Constitutional: Denies body ache(s), Denies chills, Denies fatigue, Denies fever(s), Denies headache(s), Denies malaise and Denies weakness Eyes: Eyes: Denies blurry vision, Denies itchy eyes and Denies loss of vision ENT: Reports otalgia, Denies headache(s), Denies nasal congestion, Denies sinus pain and Reports sore throat Cardiovascular: Cardiovascular: Denies chest pain, Denies irregular heart rhythm and Denies dyspnea Respiratory: Respiratory: Reports cough and Denies dyspnea Gastrointestinal: Gastrointestinal: Denies abdominal pain, Denies diarrhea, Denies nausea and Denies vomiting Musculoskeletal: Musculoskeletal: Denies back pain, Denies myalgias and Denies arthralgias Integumentary/Breasts: Skin/Breast: Denies pruritus and Denies rash Neurologic: Denies headache(s), Denies loss of vision and Denies weakness Psychiatric: Psychiatric: Reports no additional psychiatric complaints Endocrine: Endocrine: Denies fatigue Allergic/Immunologic: Allergic/Immunologic: Denies itchy eyes PMFSH Past Medical History Medical History Anxiety and depression COVID-19 (05/06/20) Exposure to COVID-19 virus Overactive bladder Stomatitis Coated tongue Viral bronchitis Surgical History Surgical History H/O spinal fusion Family History Family History Mother Family history of hypercholesterolemia Father Family history of cardiac disorder Social History Social History Smoking status: Never smoker Alcohol intake: never Substance use: never Living arrangements: with family Gender identity (if verbalized by the patient): Female Comments At time of signature, agree with nursing past medical, surgical, social and family history. There is no relevant family history pertinent to the presenting complaint. Exam Const: General: cooperative, healthy appearing, comfortable, no acute distress and well nourished Nutritional Appearance: well nourished Orientation/consciousness: patient oriented x3 Limitations: no limitations HENMT: Head: normal to inspection, normocephalic and atraumatic Ears: hearing grossly normal bilaterally, external ears normal, EAC's normal, no periauricular adenopathy and TM abnormal wth effusion serous bilateral Face/Nose/Sinus: Normal external nose present, Abnormal mucous membranes and turbinates present erythematous bilateral and diffuse, normal facial exam, sinuses nontender and face symmetric Face and sinus: normal facial exam, sinuses nontender and face symmetric Mouth: Yes Normal oral and palatal mucosa present, Yes lip normal, Yes tongue normal, Yes Normal salivary glands and ducts present, Yes oropharynx normal and Yes moist mucous membranes Teeth and gingiva: dentition normal Throat: posterior oropharynx normal, tonsils normal, uvula midline and postnasal drainage Eyes: General: appearance normal, both eyes and all related structures Alignment and Position: alignment normal and position normal Periorbital: periorbital findings normal Eyelids: eyelids normal Pupils: Equal, round and reactive pupils present Neck: Neck: normal visual inspection, full ROM, no lymphadenopathy and supple Chest: Chest palpation & inspection: normal inspection of the chest and normal palpation of entire chest wall Resp: Effort & Inspection: normal respiratory effort and able to speak in complete sentences Auscultation: clear to auscultation bilaterally, no crackles, no rales, no rhonchi and no wheezes Cardio: Rate: regular rate Rhythm: regular rhythm Heart sounds: S1 normal heart sound present and S2 normal heart sound present GI: Inspection: normal to inspection Skin: General skin exam: normal color and no rashes or lesions noted Neuro: General: patient oriented x3 and moves all extremities Cranial nerves: Yes Equal, round and reactive pupils present Speech: normal speech Gait exam (Neuro): Normal gait present Extrem: General: normal to inspection, full ROM and no edema Psych: Appearance: grossly normal and well kempt Mental Status: mental status grossly normal Speech and movement: Normal speech and movement present Affect: normal affect Attitude: cooperative Thought process: Normal thought process present Course Course Emergency Course: Discharge instructions reviewed with patient, as well as provided in writing per nursing staff. The instructions also include specific and strict return/GO TO THE ER as well as f/u information. All questions have been answered, and the patient deny any further questions with discharge and discharge plan. Portions of this record may have been created with voice recognition software Level of Care: Express Care Visit Vital Signs Vital signs: Vital Signs Oxygen Delivery Room Air 07/19/24 16:28 Temperature 37.5 C 07/19/24 16:30 Pulse Rate 90 07/19/24 16:30 Respiratory Rate 16 07/19/24 16:30 Blood Pressure 126/84 07/19/24 16:30 Pulse Oximetry 100 07/19/24 16:30 Oxygen Delivery Room Air 07/19/24 16:28 Reviewed MDM - URI/Sore Throat MDM Narrative Medical decision making narrative: Pt well hydrated appearing, in no respiratory distress, hemodynamically stable. Recommend supportive care. The patient is stable at time of discharge the clinical impression was discussed and the patient was given the opportunity to ask questions, which were addressed as completely as possible given the information available at present. Anticipatory guidance and return to care precautions were discussed and the importance of primary care follow-up was stressed and encouraged. The patient voiced understanding of the plan, indications to return, and the need for follow-up. Differential diagnosis considered: Lyles virus, strep pharyngitis, allergic rhinitis, upper respiratory tract infection, sinusitis, rhinosinusitis, nasopharyngitis. viral pharyngitis, otitis media, otitis externa, otitis effusion, foreign body, cerumen impaction, viral syndrome, and influenza.? Exam findings show no acute concerns or changes; patient is non-toxic appearing and is in no distress.? Patient is appropriate for outpatient treatment and follow-up.? Medical Records Attestation: I reviewed the patient's medical records. Lab Data Attestation: I reviewed the patient's lab results. Labs: Lab Results 07/19/24 Range/Units 16:38 POC Grp A Strep Screen Negative (Negative) Discharge Plan Discharge Clinical Impression: Upper respiratory infection Qualifiers: URI type: unspecified viral URI Qualified Code(s): J06.9 - Acute upper respiratory infection, unspecified Patient Disposition: Home, Self-Care Condition: Stable Instructions: Upper Respiratory Infection (ED) Additional Instructions: Your rapid strep swab was negative today at [facility]. A throat culture will be sent to the laboratory for further testing. If the test is positive, you will receive a phone call within 48 hours and an appropriate antibiotic will be initiated at that time. Your symptoms are likely due to a viral illness, which is not treated with antibiotics. Viral symptoms can be present for up to a few weeks. -Alternate Tylenol and Motrin per package directions for fever or pain. -Antihistamine medication such as Benadryl/Zyrtec at night and Claritin/Tiffany during the day can help improve symptoms. -Use Flonase twice a day for 5 days then daily to help reduce the inflammation and dry up your sinuses. -You can also use Sudafed behind the pharmacy counter(12 or 24 hour). Be sure to drink plenty of water with these medications at least 8 ounces with every dose and it is important to drink 8 to 10 glasses of water per day. Water is a natural decongestant -Eat and drink things that are easy to swallow, like tea or soup, or popsicles. -Oral rinses such as: Salt water gargles and/or may use topical anesthetic (eg. Chloraseptic spray) or lozenges to relieve dryness or throat pain). -Frequent hand washing or hand grout machine operator is one of the best ways to prevent spread of infection. -Using a vaporizer or humidifier at night will also help thin secretions and help with coughing up phlegm. -Follow up with primary care provider in 3-5 days if condition is not improving - For new or worsening symptoms go directly to the nearest ER Patient Language: Uzbek Prescriptions: New albuterol sulfate 2.5 mg /3 mL (0.083 %) solution for nebulization 2.5 mg inhalation Q6H Qty: 90 0RF benzonatate 100 mg capsule 100 mg PO BID PRN (Reason: cough) Qty: 14 0RF No Action ascorbate calcium (vitamin C) 500 mg Tablet 1,000 mg PO DAILY cholecalciferol (vitamin D3) [Vitamin D3] 50 mcg (2,000 unit) Capsule 50 mcg PO DAILY cetirizine [Zyrtec] 10 mg Tablet 10 mg PO DAILY spironolactone 100 mg tablet 100 mg PO DAILY bupropion HCl 300 mg tablet extended release 24 hr 300 mg PO DAILY triamcinolone acetonide 0.1 % cream 1 applic topical BID 7 Days Qty: 30 0RF biotin tolterodine 4 mg capsule,extended release 24hr 4 mg PO DAILY Qty: 90 3RF Follow-up/Referrals: Barby,Karen May, STEAMFITTER SUPERVISOR [Primary Care Provider] - 3 Days Time of Disposition: 16:56
[2024-07-19 16:30] VITALS: BP 126/84; PULSE 90; RESP 16; TEMP 37.5; O2SAT 100
[2024-07-19 16:40] LABS: EDSTREPNEGPOS1 Negative (Negative)
== END 2024-07-19 17:00 | disposition home or self-care (01) ==
PROVIDERS: Emergency Provider Nurse Practitioner Family; PCP Nurse Practitioner Family
DX: J06.9 Acute upper respiratory infection, unspecified (principal)
CPT/HCPCS: 87081; 87880; 99213; G0463

== ENCOUNTER 2025-06-10 11:08 | Emergency (ER) | payer OTHER, SELFPAY ==
[2025-06-10 11:54] VITALS: BP 124/83; PULSE 87; RESP 16; TEMP 37.1; O2SAT 98
--- NOTE | 2025-06-10 12:09 | ED.URI ---
HPI - URI/Sore Throat General Chief Complaint: Upper Respiratory Infection Stated Complaint: cough, loss of voice Time Seen by Provider: 06/10/25 12:00 Source: patient Mode of arrival: ambulatory Limitations: no limitations History of Present Illness HPI Narrative: Samanta is a 55-year-old female patient presenting to the clinic today with complaints of cough, nasal drainage, sore throat, headache, and loss of her voice. Symptoms have been going on for 2-3 days. She denies any known fevers, chills, body aches. Denies any chest pain or shortness of breath. Has been taking Zyrtec D. She does work in a school setting. Related Data Home Medications ?Medication ?Instructions ?Recorded ?Confirmed ?Last Taken ?Type bupropion HCl 300 mg 24 hr tablet, 300 mg PO DAILY 04/30/19 07/06/24 Unknown History extended release cetirizine 10 mg tablet (Zyrtec) 10 mg PO DAILY 04/30/19 07/06/24 Unknown History Held on 07/13/19. Instructions: Order Change spironolactone 100 mg tablet 100 mg PO DAILY 04/30/19 07/06/24 Unknown History ascorbate calcium (vitamin C) 500 1,000 mg PO DAILY 08/14/21 07/06/24 Unknown History mg tablet cholecalciferol (vitamin D3) 50 50 mcg PO DAILY 08/14/21 07/06/24 Unknown History mcg (2,000 unit) capsule (Vitamin D3) biotin 07/06/24 Unknown History Allergies Allergy/AdvReac Type Severity Reaction Status Date / Time No Known Allergies Allergy Verified 07/19/24 16:32 Review of Systems Review of Systems: Pertinent positives per HPI. Patient denies any fever, chills, rash, visual changes, dizziness, shortness of breath, chest pain, palpitations, nausea, vomiting, diarrhea, constipation, abdominal pain, or any urinary issues. [facility] Past Medical History Medical History Anxiety and depression COVID-19 (05/06/20) Exposure to COVID-19 virus Overactive bladder Stomatitis Coated tongue Viral bronchitis Surgical History Surgical History H/O spinal fusion Family History Family History Mother Family history of hypercholesterolemia Father Family history of cardiac disorder Social History Social History Smoking status: Never smoker Alcohol intake: never Substance use: never Living arrangements: with family Gender identity (if verbalized by the patient): Female Comments At the time of my signature, I reviewed and agree with the nursing past medical, surgical, social, and family history. There is no relevant family history pertinent to the patient complaint. Exam Narrative: General: Well-developed, well nourished, in no apparent distress Head: Normocephalic, atraumatic Eyes: Pupils equally round and reactive to light bilaterally, EOM intact, sclera and conjunctive clear, no discharge, lids normal Ears: TMs intact and clear, ear canals clear, no drainage, grossly hearing normal. Nose: Nares patent, clear nasal discharge, mild inflammation, no sinus tenderness. Mouth: Oral pharynx red without lesions or masses, good dentition, MMM. Postnasal drip Neck: Supple, trachea midline, no enlargement of anterior or posterior cervical nodes, no thyroid masses or goiter palpable. Cardio: Regular rate and rhythm, s1 and s2 normal, no murmur appreciated. Resp: Clear to auscultation bilaterally, no rhonchi, rales, wheezing or rubs Course Course Level of Care: Express Care Visit Vital Signs Vital signs: Vital Signs Temperature 37.1 C 06/10/25 11:54 Pulse Rate 87 06/10/25 11:54 Respiratory Rate 16 06/10/25 11:54 Blood Pressure 124/83 06/10/25 11:54 Pulse Oximetry 98 06/10/25 11:54 Temperature 37.1 C 06/10/25 11:54 Pulse Rate 87 06/10/25 11:54 Respiratory Rate 16 06/10/25 11:54 Blood Pressure 124/83 06/10/25 11:54 Pulse Oximetry 98 06/10/25 11:54 MDM MDM Narrative Medical decision making narrative: At the time of visit patient is resting comfortably on the exam table. Patient appears to be nontoxic. Complaints of cough, nasal drainage, sore throat, headache, and loss of her voice. Symptoms have been going on for 2-3 days. She denies any known fevers, chills, body aches. Denies any chest pain or shortness of breath. Has been taking Zyrtec D. She does work in a school setting. On exam patient has bilateral TMs intact and clear, clear nasal drainage, mild anterior turbinate inflammation, oral pharynx red with postnasal drip, no cervical lymphadenopathy, lung sounds are clear, heart rates regular rate and rhythm. COVID and influenza testing was ordered. Labs: COVID and influenza testing was negative in the clinic today. Plan: I suspect patient has URI/pharyngitis/viral syndrome. Supportive measures were discussed with the patient and they voiced understanding discharge instructions and agrees to treatment plan. Return precautions reviewed Differential Diagnosis Differential Diagnosis: Differential diagnostic considerations for upper respiratory infection include upper respiratory infection, croup, otitis media, sinusitis, viral infection, bronchitis, influenza, pharyngitis, strep, uvulitis. Lab Data Labs: Lab Results 06/10/25 Range/Units 12:20 POC Influenza A Ag Negative (Negative) POC Influenza B Ag Negative (Negative) POC SARS CoV-2 Ag Negative (Negative) Discharge Plan Discharge Clinical Impression: Acute viral syndrome URI (upper respiratory infection) Qualifiers: URI type: unspecified URI Qualified Code(s): J06.9 - Acute upper respiratory infection, unspecified Pharyngitis Qualifiers: Pharyngitis/tonsillitis etiology: unspecified etiology Qualified Code(s): J02.9 - Acute pharyngitis, unspecified Patient Disposition: Home Condition: Stable Instructions: Antibiotic Form, Pharyngitis (ED), Viral Syndrome (ED), Cold Symptoms (ED) Additional Instructions: COVID and influenza testing was negative in the clinic today. May take DayQuil/NyQuil for cold/flu symptoms. Increase fluids and stay well hydrated May take Tylenol or motrin as directed on bottle for pain/fever May use Flonase 1 spray in each nare daily May take OTC antihistamines such as Zyrtec or Claritin daily as directed on bottle May apply Vicks vapor rub to chest to open sinuses Sinus rinses for congestion Cepacol spray, cough drops, throat lozenges, warm tea with honey/lemon, gargle salt water to soothe throat BRAT diet for diarrhea Clear liquids x 24 hours then advance as tolerated for nausea/vomiting Go to the ED if you develop a worsening in your condition- high fever not controlled by Tylenol or Motrin, dehydration, weakness, lethargy, shortness of breath, or chest pain. Follow up with your PCP in 3-5 days if symptoms persist. Patient Language: Malay Prescriptions: No Action ascorbate calcium (vitamin C) 500 mg Tablet 1,000 mg PO DAILY cholecalciferol (vitamin D3) [Vitamin D3] 50 mcg (2,000 unit) Capsule 50 mcg PO DAILY cetirizine [Zyrtec] 10 mg Tablet 10 mg PO DAILY spironolactone 100 mg tablet 100 mg PO DAILY bupropion HCl 300 mg tablet extended release 24 hr 300 mg PO DAILY triamcinolone acetonide 0.1 % cream 1 applic topical BID 7 Days Qty: 30 0RF biotin albuterol sulfate 2.5 mg /3 mL (0.083 %) solution for nebulization 2.5 mg inhalation Q6H Qty: 90 0RF benzonatate 100 mg capsule 100 mg PO BID PRN (Reason: cough) Qty: 14 0RF tolterodine 4 mg capsule,extended release 24hr 4 mg PO DAILY Qty: 90 3RF Follow-up/Referrals: Barby,Karen May APRN [Primary Care Provider, Unknown] Time of Disposition: 12:22 Quality NIHSS Nursing Documentation ED NIHSS nursing documentation: reviewed/agree
[2025-06-10 12:22] LABS: EDCOVIDSCREEN Negative (Negative); EDINFLUASCREEN Negative (Negative); EDINFLUBSCREEN Negative (Negative)
== END 2025-06-10 12:49 | disposition home or self-care (01) ==
PROVIDERS: Emergency Provider Nurse Practitioner Family; PCP Nurse Practitioner Family
DX: B34.9 Viral infection, unspecified (principal); J06.9 Acute upper respiratory infection, unspecified; J02.9 Acute pharyngitis, unspecified; Z20.822 Contact with and (suspected) exposure to COVID-19; N32.81 Overactive bladder; F41.9 Anxiety disorder, unspecified; F32.A Depression, unspecified; Z86.16 Personal history of COVID-19
CPT/HCPCS: 87426; 87804; 99212; G0463